=== PATIENT | female | born 1970 | race Caucasian/White ===

== ENCOUNTER 2017-09-02 03:24 | Emergency (ER) | payer MEDICAID ==
[~2017-09-02] VITALS: Ht 162.6 cm; Wt 72.6 kg
[~2017-09-02 03:24] MED LIST: VITA1CAP9 PO
--- NOTE | 2017-09-02 06:21 | NUR ---
Patient discharged to home in stable conditon. Written and verbal after care instructions given. Patient verbalizes understanding of instructions. Pt left ER in steady gait. All belongings with pt. VSS. No acute distress noted.
[2017-09-02 06:22] VITALS: BP 114/67
== END 2017-09-02 06:23 | disposition home or self-care (01) ==
LOC: ER 03:29
DX: J20.8 Acute bronchitis due to other specified organisms (principal); B96.89 Other specified bacterial agents as the cause of diseases classified elsewhere; Z79.899 Other long term (current) drug therapy
CPT/HCPCS: 36415; 71045; 86403; 87070; 99285; A4663

== ENCOUNTER 2021-04-10 02:26 | Emergency (ER) | payer MEDICAID, OTHER ==
[~2021-04-10] VITALS: Ht 160 cm; Wt 84.4 kg
--- NOTE | 2021-04-10 02:28 | NUR ---
Mesha LOWERY AT BEDSIDE, MSE IN PROGRESS.
[2021-04-10] MEDS ORDERED: NITROGLYCERIN OINT 1 GM PACKET TP ONE ×2 (02:30→02:58)
--- NOTE | 2021-04-10 02:42 | NUR ---
PT REFUSED COVID TEST.
--- NOTE | 2021-04-10 02:47 | NUR ---
LAB AT BEDSIDE.
[2021-04-10 03:01] LABS: HEMATOCRIT 38.9 % (31.2-41.9); MEAN CORPUSCULAR HEMOGLOBIN 27.2 uug (24.7-32.8); MEAN CORPUSCULAR VOLUME 80.4 fL (75.5-95.3); PLATELET COUNT (AUTO) 285 K/uL (179-408)
[2021-04-10 03:05] LABS: CREATININE 0.8 mg/dL (0.6-1.3); POTASSIUM 3.9 mmol/L (3.5-5.1)
--- NOTE | 2021-04-10 03:14 | NUR ---
XRAY AT BEDSIDE.
[2021-04-10 03:18] LABS: BILIRUBIN,DIRECT 0.1 mg/dL (0.0-0.2); BILIRUBIN,TOTAL 0.3 mg/dL (0.2-1.0); TOTAL PROTEIN, SERUM 7.5 g/dL (6.4-8.2)
[2021-04-10] MEDS ORDERED: LORAZEPAM 2 MG/1 ML VIAL IV ONE (04:00)
[2021-04-10] MEDS ORDERED: LORAZEPAM 2 MG/1 ML VIAL ONE (04:11)
--- NOTE | 2021-04-10 04:48 | NUR ---
PT IN BED ASLEEP, BREATHING EVEN AND UNLABORED.
[2021-04-10] MEDS ORDERED: LORA-259 PO (05:42)
--- NOTE | 2021-04-10 08:58 | NUR ---
PT WAS D/C'd TO HOME. D/C INSTRUCTIONS GIVEN TO THE PT BY DR ZAVALA. NO S/S OF DISTRESS. PT DENIES PAIN, NO SOB. NO N/V. GAIT IS STABLE.
[2021-04-10] MEDS ORDERED: ACETAMINOPHEN ES 500 MG TABLET PO ONE (09:00)
[2021-04-10] MEDS ORDERED: ACETAMINOPHEN ES 500 MG TABLET ONE (09:03)
[2021-04-10 09:05] VITALS: BP 111/65
== END 2021-04-10 09:49 | disposition home or self-care (01) ==
LOC: ER 02:32
DX: R07.89 Other chest pain (principal); Z79.899 Other long term (current) drug therapy; R94.31 Abnormal electrocardiogram [ECG] [EKG]; F32.89 Other specified depressive episodes
CPT/HCPCS: 36415; 71045; 80048; 80076; 83880; 84484 ×2; 85025; 85379; 85730; 93005 ×2; 99285; J2060; 70030-TC; A4663; A9150